=== PATIENT | male | born 1945 | race Caucasian/White ===

== ENCOUNTER 2017-03-23 11:10 | Emergency (ER) | payer OTHER ==
[~2017-03-23] VITALS: Ht 180.3 cm; Wt 100.0 kg
[2017-03-23 11:27] VITALS: BP 146/74; PULSE 49; RESP 16; TEMP 97.8; O2SAT 95
[2017-03-23] MEDS ORDERED: LATA0.002 EACH EYE (11:40)
[2017-03-23] MEDS ORDERED: SYMB160A INH (11:40)
[2017-03-23] MEDS ORDERED: ALBUAER3 INH (11:40)
[2017-03-23] MEDS ORDERED: LOVA20TA PO (11:40)
[2017-03-23] MEDS ORDERED: DILT300C3 PO (11:40)
[2017-03-23] MEDS ORDERED: OMEP20TA93 PO (11:40)
[2017-03-23] MEDS ORDERED: DORZ2SOL15 EACH EYE (11:40)
[2017-03-23] MEDS ORDERED: MELO7.5T27 PO (11:40)
[2017-03-23] MEDS ORDERED: LOVA40TA PO (11:40)
[2017-03-23] MEDS ORDERED: SPIRCAP INH (11:40)
[2017-03-23] MEDS ORDERED: BRIM0.2S4 EACH EYE (11:40)
[2017-03-23] MEDS ORDERED: VIAG50TA PO (11:40)
[2017-03-23] MEDS ORDERED: LISI10TA PO (11:40)
--- NOTE | 2017-03-23 12:11 | PD ---
HPI Chief Complaint: Cardiac Complaint Time Seen by Provider: 11:46 Travel History International Travel<30 days: No Contact w/Intl Traveler<30days: No Traveled to known affect area: No History of Present Illness HPI 72-year-old male with a history of COPD presents to emergency department at the request of his [place] [facility] for low heart rate. States he went to his [place] for "pressure" in the back of his neck for approximately 3 days. States that this pain started suddenly. States nothing improves or increases his pain. States the pain is pressure and mild, and constant. States that the pain has since migrated to the front of his head near his forehead. Denies blurred vision, loss of consciousness, trauma, chest pain, shortness of breath, nausea, vomiting. Patient denies any significant MVCs or trauma to the neck previously. States he took NSAIDs a day without improvement of his pain. Patient denies history of heart attack and is not on blood thinners although says he was at one time for an unknown reason. Patient did have an episode of syncope approximately 10 years ago which is the reason why he was placed on blood thinners. Patient is a vague historian regarding this event. Patient states that his medications have changed but cannot tell me when or what medications these were. Patient states he otherwise feels fine and continues to deny chest pain or shortness of breath. PFSH Past Medical History COPD: Yes Hypertension: Yes Influenza Vaccination: No Past Surgical History Thoracic Surgery: Yes (CYST REMOVED FROM SPINE) Tonsillectomy: Yes Social History Alcohol Use: No Tobacco Use: No Substance Use: No Allergies-Medications (Allergen,Severity, Reaction): Coded Allergies: ciprofloxacin (Verified Allergy, Unknown, 03/23/17) Reported Meds & Prescriptions Reported Meds & Active Scripts Active Reported Latanoprost Opth Drops (Latanoprost) 0.005% Drops 1 Drop EACH EYE HS Refrigerate until opened. Dorzolamide-Timolol Opth Drops 22.3-6.8 Mg/Ml Soln 1 Drop EACH EYE BID Spiriva Handihaler (Tiotropium Inh) 18 Mcg Cap 18 Mcg INH DAILY 1 capsule = 18 mcg Viagra (Sildenafil Citrate) 50 Mg Tab 50 Mg PO DAILY PRN Omeprazole 20 Mg Tab 20 Mg PO DAILY Meloxicam 7.5 Mg Tab 7.5 Mg PO DAILY Lovastatin 20 Mg Tab 20 Mg PO DAILY Lisinopril-Hctz 10-12.5 Mg Tab 1 Tab PO DAILY Diltiazem CD 24 HR 300 Mg Caper 300 Mg PO DAILY Symbicort Inh (Budesonide/Formoterol Fumarate) 160-4.5 Mcg/Act Aero 2 Puff INH Q12HR Brimonidine Opth Drops (Brimonidine Tartrate) 0.2% Soln 1 Drop EACH EYE TID Proair Hfa 8.5 GM Inh (Albuterol Sulfate) 90 Mcg/Act Aer 2 Puff INH Q4-6H PRN 108 mcg/actuation Review of Systems Except as stated in HPI: all other systems reviewed are Neg Physical Exam Narrative GENERAL: Well-nourished in no apparent distress SKIN: Focused skin assessment warm/dry. HEAD: Atraumatic. Normocephalic. mild TTP to base of neck without muscle spasms EYES: Pupils equal and round. No scleral icterus. No injection or drainage. ENT: No nasal bleeding or discharge. Mucous membranes pink and moist. NECK: Trachea midline. No JVD. Midline tenderness entire cervical spine, FROM of neck without exacerbating symptoms CARDIOVASCULAR: Regular rate and rhythm. No murmur appreciated. RESPIRATORY: No accessory muscle use. Clear to auscultation. Breath sounds equal bilaterally. GASTROINTESTINAL: Abdomen soft, non-tender, nondistended. MUSCULOSKELETAL: No obvious deformities. No clubbing. No cyanosis. No edema. NEUROLOGICAL: Awake and alert. No obvious cranial nerve deficits. Motor grossly within normal limits. Normal speech. PSYCHIATRIC: Appropriate mood and affect; insight and judgment normal. Data Data Last Documented VS Vital Signs Date Time Temp Pulse Resp B/P (MAP) Pulse Ox O2 Delivery O2 Flow Rate FiO2 03/23/17 11:27 97.8 49 16 146/74 (98) 95 Orders Orders Electrocardiogram (03/23/17 11:30) Basic Metabolic Panel (Bmp) (03/23/17 11:55) Ckmb (Isoenzyme) Profile (03/23/17 11:55) Complete Blood Count With Diff (03/23/17 11:55) Prothrombin Time / Inr (Pt) (03/23/17 11:55) Act Partial Throm Time (Ptt) (03/23/17 11:55) Troponin I (03/23/17 11:55) Chest, Single Ap (03/23/17 11:55) Ecg Monitoring (03/23/17 11:55) Iv Access Insert/Monitor (03/23/17 11:55) Oximetry (03/23/17 11:55) Ct Brain W/O Iv Contrast(Rout) (03/23/17 ) Ct Cerv Spine W/O Contrast (03/23/17 ) CKMB (03/23/17 11:45) CKMB% (03/23/17 11:45) Ed Discharge Order (03/23/17 13:08) Labs Laboratory Tests Test 03/23/17 11:45 White Blood Count 8.0 TH/MM3 Red Blood Count 4.55 MIL/MM3 Hemoglobin 14.0 GM/DL Hematocrit 40.6 % Mean Corpuscular Volume 89.1 FL Mean Corpuscular Hemoglobin 30.7 PG Mean Corpuscular Hemoglobin Concent 34.4 % Red Cell Distribution Width 14.3 % Platelet Count 216 TH/MM3 Mean Platelet Volume 8.9 FL Neutrophils (%) (Auto) 58.7 % Lymphocytes (%) (Auto) 24.7 % Monocytes (%) (Auto) 8.7 % Eosinophils (%) (Auto) 6.4 % Basophils (%) (Auto) 1.5 % Neutrophils # (Auto) 4.7 TH/MM3 Lymphocytes # (Auto) 2.0 TH/MM3 Monocytes # (Auto) 0.7 TH/MM3 Eosinophils # (Auto) 0.5 TH/MM3 Basophils # (Auto) 0.1 TH/MM3 CBC Comment DIFF FINAL Differential Comment Prothrombin Time 10.8 SEC Prothromb Time International Ratio 1.1 RATIO Activated Partial Thromboplast Time 24.9 SEC Blood Urea Nitrogen 21 MG/DL Creatinine 1.36 MG/DL Random Glucose 89 MG/DL Calcium Level 8.5 MG/DL Sodium Level 138 MEQ/L Potassium Level 4.3 MEQ/L Chloride Level 102 MEQ/L Carbon Dioxide Level 31.9 MEQ/L Anion Gap 4 MEQ/L Estimat Glomerular Filtration Rate 52 ML/MIN Total Creatine Kinase 109 U/L Creatine Kinase MB 1.6 NG/ML Troponin I LESS THAN 0.02 NG/ML MDM Medical Decision Making Medical Screen Exam Complete: Yes Emergency Medical Condition: Yes Differential Diagnosis Bradycardia, cervical arthritis, NSTEMI, medication induced bradycardia Narrative Course 72-year-old male with a history of COPD presents to emergency department at the request of his [place] [facility] for low heart rate. States he went to his [place] [facility] for "pressure" in the back of his neck for approximately 3 days. States that this pain started suddenly. States nothing improves or increases his pain. States the pain is pressure and mild, and constant. States that the pain has since migrated to the front of his head near his forehead. Denies blurred vision, loss of consciousness, trauma, chest pain, shortness of breath, nausea, vomiting. Patient denies any significant MVCs or trauma to the neck previously. States he took NSAIDs a day without improvement of his pain. Patient denies history of heart attack and is not on blood thinners although says he was at one time for an unknown reason. Patient did have an episode of syncope approximately 10 years ago which is the reason why he was placed on blood thinners. Patient is a vague historian regarding this event. Patient states that his medications have changed but cannot tell me when or what medications these were. Patient states he otherwise feels fine and continues to deny chest pain or shortness of breath. Vital signs stable with HR 40-60BPM EKG demonstrates Sinus rhythm with 1st degree heart block at ANIKA >2ms Physical exam findings TTP to posterior neck, FROM of neck, no JVD Last Impressions Chest X-Ray 03/23/17 1155 Signed Impressions: Service Date/Time: Thursday, March 23, 2017 12:13 - CONCLUSION: Compensated cardiomegaly otherwise negative Thor Martin MD FACR Head CT 03/23/17 0000 Signed Impressions: Service Date/Time: Thursday, March 23, 2017 12:22 - CONCLUSION: Negative for acute process.. Thor Martin MD FACR Cervical Spine CT 03/23/17 0000 Signed Impressions: Service Date/Time: Thursday, March 23, 2017 12:24 - CONCLUSION: 1. No acute fracture or prevertebral soft tissue swelling. 2. Mild spinal stenosis at C5-6. 3. Grade I retrolisthesis of C5 in relation to C6. 4. Diffuse cervical spondylosis and multilevel foraminal narrowing bilaterally. Malvin Real MD Laboratory Tests Test 03/23/17 11:45 White Blood Count 8.0 TH/MM3 Red Blood Count 4.55 MIL/MM3 Hemoglobin 14.0 GM/DL Hematocrit 40.6 % Mean Corpuscular Volume 89.1 FL Mean Corpuscular Hemoglobin 30.7 PG Mean Corpuscular Hemoglobin Concent 34.4 % Red Cell Distribution Width 14.3 % Platelet Count 216 TH/MM3 Mean Platelet Volume 8.9 FL Neutrophils (%) (Auto) 58.7 % Lymphocytes (%) (Auto) 24.7 % Monocytes (%) (Auto) 8.7 % Eosinophils (%) (Auto) 6.4 % Basophils (%) (Auto) 1.5 % Neutrophils # (Auto) 4.7 TH/MM3 Lymphocytes # (Auto) 2.0 TH/MM3 Monocytes # (Auto) 0.7 TH/MM3 Eosinophils # (Auto) 0.5 TH/MM3 Basophils # (Auto) 0.1 TH/MM3 CBC Comment DIFF FINAL Differential Comment Prothrombin Time 10.8 SEC Prothromb Time International Ratio 1.1 RATIO Activated Partial Thromboplast Time 24.9 SEC Blood Urea Nitrogen 21 MG/DL Creatinine 1.36 MG/DL Random Glucose 89 MG/DL Calcium Level 8.5 MG/DL Sodium Level 138 MEQ/L Potassium Level 4.3 MEQ/L Chloride Level 102 MEQ/L Carbon Dioxide Level 31.9 MEQ/L Anion Gap 4 MEQ/L Estimat Glomerular Filtration Rate 52 ML/MIN Total Creatine Kinase 109 U/L Creatine Kinase MB 1.6 NG/ML Troponin I LESS THAN 0.02 NG/ML Cardiac enzymes negative. I suspect that patient's bradycardia secondary to his diltiazem. Patient remains asymptomatic despite this bradycardia. Patient will hold this medication for 24 hours. Advised that he return to his [place] outpatient clinic today for reevaluation and possible medication adjustment. In addition, patient's neck pain is consistent with age-related changes. Patient states understanding and will comply. he will be discharged with labs and imaging studies to take with him to the [facility]. Advised that if he develops shortness of breath or chest pain to return to the emergency department immediately. Diagnosis Primary Impression: Cervical pain (neck) Additional Impression: Bradycardia Referrals: Neurosurgeon Primary Care Physician Additional Instructions: Follow up with your PCP this week for possible medication adjustment particularly your diltiazem. Hold your Diltiazem for 24 hours to monitor your heart rate as you heart rate was slow today. Consider an orthopedist or neurosurgeon follow up to evaluate your neck pain. Use antiinflammatories sparingly for your neck pain as her kidney function has been found to be slightly decreased today, which may be normal for you. You may use Tylenol for your pain. If your symptoms persist or worsen return to the emergency department. Disposition: 01 DISCHARGE HOME Condition: Stable Sarahi Sauceda Mar 23, 2017 12:11
[2017-03-23 12:16] LABS: AUTOMATED NEUTROPHIL # 4.7 TH/MM3 (1.8-7.7); BASOPHIL # 0.1 TH/MM3 (0-0.2); BASOPHIL % 1.5 % (0.0-2.0); EOSINOPHIL # 0.5 TH/MM3 (0-0.4); EOSINOPHIL % 6.4 % (0.0-4.0); HEMATOCRIT 40.6 % (39.0-51.0); LYMPH % 24.7 % (9.0-44.0); MEAN CELL VOLUME 89.1 FL (80.0-100.0); MEAN CORPUSCULAR HEMOGLOBIN 30.7 PG (27.0-34.0); MEAN CORPUSCULAR HGB CONC 34.4 % (32.0-36.0); MEAN PLATELET VOLUME 8.9 FL (7.0-11.0); MONO % 8.7 % (0.0-8.0); MONOCYTE # 0.7 TH/MM3 (0-0.9); NEUT % 58.7 % (16.0-70.0); PLATELET COUNT 216 TH/MM3 (150-450); RED BLOOD COUNT 4.55 MIL/MM3 (4.50-5.90); RED CELL DISTRIBUTION WIDTH 14.3 % (11.6-17.2)
[2017-03-23 12:27] LABS: INTERNATIONAL NORMALIZED RATIO 1.1 RATIO; PROTHROMBIN TIME - PATIENT 10.8 SEC (9.8-11.6)
[2017-03-23 12:34] LABS: BICARBONATE 31.9 MEQ/L (21.0-32.0); BLOOD UREA NITROGEN 21 MG/DL (7-18); CALCIUM 8.5 MG/DL (8.5-10.1); CHLORIDE 102 MEQ/L (98-107); CREATININE 1.36 MG/DL (0.60-1.30); GLOMERULAR FILTRATION RATE 52 ML/MIN (>89); GLUCOSE,RANDOM 89 MG/DL (74-106); SODIUM (NA) 138 MEQ/L (136-145)
[2017-03-23 12:37] LABS: TROPONIN I LESS THAN 0.02 NG/ML (0.02-0.05)
--- NOTE | 2017-03-23 12:38 | RADRPT ---
EXAM DATE/TIME: 03/23/2017 12:22 [facility] COMPARISON: No previous studies available for comparison. INDICATIONS : Sudden onset occipital pain RADIATION DOSE: 56.35 CTDIvol (mGy) MEDICAL HISTORY : Chronic obstructive pulmonary disease. Hypertension. SURGICAL HISTORY : None. ENCOUNTER: Initial ACUITY: 1 day PAIN SCALE: 6/10 LOCATION: occipital TECHNIQUE: Multiple contiguous axial images were obtained of the head. Using automated exposure control and adj ustment of the mA and/or kV according to patient size, radiation dose was kept as low as reasonably a chievable to obtain optimal diagnostic quality images. DICOM format image data is available electro nically for review and comparison. FINDINGS: CEREBRUM: The ventricles are normal for age. No evidence of midline shift, mass lesion, hemorrhage or acute in farction. No extra-axial fluid collections are seen. POSTERIOR FOSSA: The cerebellum and brainstem are intact. The 4th ventricle is midline. The cerebellopontine angle i s unremarkable. EXTRACRANIAL: The visualized portion of the orbits is intact. SKULL: The calvaria is intact. No evidence of skull fracture. CONCLUSION: Negative for acute process.. Thor Martin MD FACR on March 23, 2017 at 12:35 Board Certified Radiologist. This report was verified electronically.
--- NOTE | 2017-03-23 12:48 | RADRPT ---
EXAM DATE/TIME: 03/23/2017 12:24 [facility] COMPARISON: CT BRAIN W/O CONTRAST, March 23, 2017, 12:22. CHEST SINGLE AP, March 23, 2017, 12:13. INDICATIONS : Sudden onset occipital pain RADIATION DOSE: 29.08 CTDIvol (mGy) MEDICAL HISTORY : Chronic obstructive pulmonary disease. Hypertension. SURGICAL HISTORY : None. ENCOUNTER: Initial ACUITY: 1 day PAIN SCALE: 6/10 LOCATION: occipital TECHNIQUE: Volumetric scanning of the cervical spine was performed. Multiplanar reconstructions in the sagittal, coronal and oblique axial planes were performed. Using automated exposure control and adjustment o f the mA and/or kV according to patient size, radiation dose was kept as low as reasonably achievable to obtain optimal diagnostic quality images. DICOM format image data is available electronically f or review and comparison. FINDINGS: Diffuse cervical spondylosis is noted. There is grade I retrolisthesis of C5 in relation to C6. Bilat eral foraminal narrowing is noted at all levels from C2 through T1. Mild spinal stenosis is noted at C5-6. The bony relationship and alignment between C1 and C2 is well maintained. No acute fracture or prevertebral soft tissue swelling is noted. CONCLUSION: 1. No acute fracture or prevertebral soft tissue swelling. 2. Mild spinal stenosis at C5-6. 3. Grade I retrolisthesis of C5 in relation to C6. 4. Diffuse cervical spondylosis and multilevel foraminal narrowing bilaterally. Malvin Real MD on March 23, 2017 at 12:40 Board Certified Radiologist. This report was verified electronically.
--- NOTE | 2017-03-23 13:04 | RADRPT ---
EXAM DATE/TIME: 03/23/2017 12:13 [facility] COMPARISON: No previous studies available for comparison. INDICATIONS : Chest discomfort; pressure in head today. MEDICAL HISTORY : Hypertension. Chronic obstructive pulmonary disease. SURGICAL HISTORY : None. ENCOUNTER: Initial ACUITY: 1 day PAIN SCORE: 10 LOCATION: Bilateral chest FINDINGS: The lungs are clear. The heart is minimally enlarged. The pulmonary vascularity is normal. There is n o evidence for infiltrate or failure. The portion of the bony skeleton visualized is unremarkable. CONCLUSION: Compensated cardiomegaly otherwise negative Thor Martin MD FACR on March 23, 2017 at 13:02 Board Certified Radiologist. This report was verified electronically.
--- NOTE | 2017-03-23 21:52 | EKG ---
Date Performed: 03/23/2017 Time Performed: 11:32:20 PTAGE: 72 years EKG: SINUS BRADYCARDIA WITH FIRST DEGREE AV BLOCK ABNORMAL ECG NO PREVIOUS TRACING DOCTOR: Betsy Carrizales Interpretating Date/Time 03/23/2017 21:50:17
== END 2017-03-23 13:47 | disposition home or self-care (01) ==
LOC: NEPC 11:10
DX: R00.1 Bradycardia, unspecified (principal); J44.9 Chronic obstructive pulmonary disease, unspecified; I10 Essential (primary) hypertension; R94.31 Abnormal electrocardiogram [ECG] [EKG]; Z79.899 Other long term (current) drug therapy
CPT/HCPCS: 70450; 71045; 72125; 80048; 82550; 82552; 84484; 85025; 85610; 85730; 93005; 99285